=== PATIENT | female | born 1940 | race Caucasian/White ===

== ENCOUNTER 2021-12-01 11:05 | Emergency (ER) | payer OTHER, MEDICAID ==
[~2021-12-01] VITALS: Ht 152.4 cm; Wt 60.8 kg
[2021-12-01 11:26] VITALS: BP_SYST 179
[2021-12-01] MEDS ORDERED: INSU100I26 SUBQ (11:26)
[2021-12-01] MEDS ORDERED: LIP40 PO (11:26)
[2021-12-01] MEDS ORDERED: METO25TA6 PO (11:26)
[2021-12-01] MEDS ORDERED: ASPI-1077 PO (11:26)
[2021-12-01] MEDS ORDERED: HYDR-4274 PO (11:26)
[2021-12-01] MEDS ORDERED: FURO-150 PO (11:26)
[2021-12-01] MEDS ORDERED: LINA5TAB2 PO (11:26)
[2021-12-01] MEDS ORDERED: SEMA0.25 SUBQ (11:26)
[2021-12-01] MEDS ORDERED: LISI2.5T48 PO (11:26)
--- NOTE | 2021-12-01 11:34 | NUR ---
BIB DAUGHTER WITH C/C OF RIGHT SHOULDER PAIN X 3 WEEKS. PT STATES SHE WAS RUNNING AWAY FROM FAMILY DOG WHEN YOU HIT YOUR RIGHT SHOULDER AND ARM INTO A DOORWAY. PT WITH HISTORY OF CHRONIC NECK PAIN. PT WITH MULTIPLE MEDICAL HX. UNDIAGNOSED WITH ARTHIRITIS, BUT CURRENTLY BEING SEEN BY PHYSICIAN TO R/O ARTHRITIS/FIBROMYALGIA. REPORTS PAIN 8/10, HAS DECREASED RANGE OF MOTION TO RIGHT SHOULDER DUE TO PAIN. PT TOOK NORCO AT 0500.
--- NOTE | 2021-12-01 11:48 | NUR ---
PLACED IN BED 2, REPORT GIVEN TO RENA CASTRO. DR. PTARICIA MADE AWARE.
--- NOTE | 2021-12-01 11:50 | NUR ---
RECEIVED PT FROM RENA MENENDEZ. PT HAS C/O RIGHT SHOULDER PAIN. PT IS AAOX4, RESP E/U. NO RA. NORMAL S1S2 NOTED. DENIES N/V/D/C. DISTAL PULSES NORMAL. SKIN WARM, NO EDEMA NOTED. NO INJURY TO RIGHT SHOULDER NOTED. PT STATES SHOULDER PAIN IS 7/10. WILL MEDICATE PER MAY. SIDERAILS UP X2, DAUGHTER AT BEDSIDE.
[2021-12-01] MEDS ORDERED: ASPIRIN 81 MG TAB.CHEW PO ONE (12:15)
[2021-12-01] MEDS ORDERED: MORPHINE 2 MG/ML INJ. SYRINGE IM ONE (12:15)
[2021-12-01 12:32] LABS: BASOPHILS # (AUTO) 0.1 K/uL (0.0-0.2); BASOPHILS % (AUTO) 0.8 % (0.0-2.0); EOSINOPHILS # (AUTO) 0.1 K/uL (0.0-0.4); EOSINOPHILS % (AUTO) 1.4 % (0.0-4.0); HEMATOCRIT 34.4 % (36-48); LYMPHOCYTES # (AUTO) 1.2 K/uL (1.0-5.5); LYMPHOCYTES % (AUTO) 16.1 % (20.5-51.5); MEAN CORPUSCULAR VOLUME 82 fL (79.0-98.0); MONOCYTES # (AUTO) 0.4 K/uL (0.0-1.0); MONOCYTES % (AUTO) 5.4 % (1.7-9.3); NEUTROPHILS # (AUTO) 5.8 K/uL (1.8-7.7); NEUTROPHILS % (AUTO) 76.3 % (40.0-70.0); PLATELET COUNT (AUTO) 289 K/uL (130-430); RED BLOOD CELL COUNT(AUTO) 4.22 MIL/uL (4.2-6.2); RED CELL DISTRIBUTION WIDTH 14.1 % (9.0-15.0); WHITE BLOOD COUNT (AUTO) 7.7 K/uL (4.8-10.8)
[2021-12-01 12:45] LABS: ANION GAP 6 (5-15); CHLORIDE 98 mmol/L (98-107); CREATININE 0.96 mg/dL (0.55-1.30); GLUCOSE 144 mg/dL (70-99); POTASSIUM 4.2 mmol/L (3.5-5.1); SODIUM SERUM 134 mmol/L (136-145); UREA NITROGEN, BLOOD 9 mg/dL (8-21)
[2021-12-01 12:56] LABS: ALANINE AMINOTRANSFERASE 24 U/L (12-78); ALBUMIN 3.7 g/dL (3.4-4.8); ASPARTATE AMINOTRANSFERASE 26 U/L (10-37); TOTAL BILIRUBIN 0.6 mg/dL (0.0-1.0)
--- NOTE | 2021-12-01 13:20 | NUR ---
URINE OBTAINED AND TAKE TO LAB.
[2021-12-01 13:58] LABS: BILIRUBIN,URINE NEGATIVE (NEGATIVE); BLOOD, URINE NEGATIVE (NEGATIVE); CLARITY/URINE CLEAR (CLEAR); COLOR,URINE YELLOW (YELLOW); GLUCOSE,URINE NEGATIVE (NEGATIVE); KETONES,URINE NEGATIVE (NEGATIVE); LEUKOCYTE ESTERASE ,URINE NEGATIVE (NEGATIVE); NITRITE, URINE NEGATIVE (NEGATIVE); PROTEIN URINE NEGATIVE (NEGATIVE); UROBILINOGEN,URINE 0.2 (0.2-1.0)
--- NOTE | 2021-12-01 14:00 | NUR ---
DR. CONSTANTINO STATED THAT HE IS AT CLINIC AND WILL CALL BACK FOR ORDERS.
--- NOTE | 2021-12-01 14:08 | NUR ---
belongings and med rec completed.
[2021-12-01] MEDS ORDERED: HYDROcodone/ACETAMIN 10-325 MG TAB PO ONE (14:15)
--- NOTE | 2021-12-01 16:55 | NUR ---
DR. CONSTANTINO STATED HE IS TRYING TO WRAP UP LAST COUPLE PTS AND WILL CALL FOR ORDERS.
[2021-12-01 19:03] VITALS: BP_SYST 136
== END 2021-12-01 19:11 | disposition admitted as inpatient to this hospital (09) ==
LOC: SED 11:05
DX: R07.9 Chest pain, unspecified (principal); M79.621 Pain in right upper arm; M54.50 Low back pain, unspecified; Z79.899 Other long term (current) drug therapy; Z20.822 Contact with and (suspected) exposure to COVID-19
CPT/HCPCS: 99285; 71045; 87426; 80053; 83880; 85025; 84484; 36415; 93005; 73030; 96372; 81003; J2270